=== PATIENT | male | born 1960 | race Caucasian/White ===

== ENCOUNTER 2018-08-08 10:04 | Emergency (ER) | payer OTHER ==
[~2018-08-08] VITALS: Ht 195.6 cm; Wt 56.8 kg
[~2018-08-08 10:04] MED LIST: ASPI81TA52 PO; CIPR500T4 PO; HYDR-3498 PO; METR500T PO; ONDA4TAB35 PO
[2018-08-08 10:07] VITALS: Ht 195.6 cm; Wt 56.8 kg
[2018-08-08] MEDS ORDERED: SOD CHLORIDE 0.9% 1,000 ML IV STA (10:45)
--- NOTE | 2018-08-08 11:55 | ERD ---
ER Documentation Chief Complaint Chief Complaint AP/NO APPETITE; WEIGHT LOSS - HX OF DIVERCULITIS HPI 58-year-old male presents the emergency department with his sister for a history of weight loss and decreased appetite. Patient states that he is been in his normal state of health until the last few weeks at which time he has had decreased appetite and decreased p.o. intake. Patient states he had a weight loss during that time. Patient's been taking his normal medications. Patient reports no fevers, chills, diarrhea or any other acute symptoms. ROS All systems reviewed and are negative except as per history of present illness. Medications Home Meds Active Scripts Hydrocodone Bit-Acetaminophen* ([place]*) 5-325 Mg Tab, 1 TAB PO Q6 PRN for SEVERE PAIN LEVEL 7-10, #7 TAB Prov:ROWAN PARADA MD 12/20/15 Ondansetron Hcl* (Zofran* ODT) 4 mg -ODT Tab.disper, 4 MG PO Q6 PRN for NAUSEA AND/OR VOMITING, #10 TAB Prov:ROWAN PARADA MD 12/20/15 Ciprofloxacin Hcl* (Ciprofloxacin Hcl*) 500 Mg Tablet, 500 MG PO BID for 7 Days, TAB Prov:ROWAN PARADA MD 12/20/15 Metronidazole* (Flagyl*) 500 Mg Tablet, 500 MG PO TID for 7 Days, TAB Prov:ROWAN PARADA MD 12/20/15 Reported Medications Aspirin (Low Dose Aspirin) 81 Mg Tablet.dr, 162 MG PO BID, #30 TAB STOPPED TAKING 12/10/15 12/20/15 Allergies Allergies: Coded Allergies: No Known Drug Allergies (Verified Allergy, Unknown, 12/20/15) PMhx/Soc History of Surgery: Yes (MULTIPLE ARM SURGERIES) Anesthesia Reaction: No Hx Neurological Disorder: No Hx Respiratory Disorders: No Hx Cardiac Disorders: No Hx Psychiatric Problems: No Hx Miscellaneous Medical Probl: No Hx Alcohol Use: No Hx Substance Use: No Hx Tobacco Use: Yes Smoking Status: Never smoker Physical Exam Vitals Vital Signs Date Temp Pulse Resp B/P (MAP) Pulse Ox O2 O2 Flow FiO2 Time Delivery Rate 08/08/18 98.5 90 19 146/77 98 10:07 (100) Physical Exam GENERAL: Thin, cachectic male in no acute distress HEENT: Pupils equal, round, and reactive to light. EOMI. There is no scleral icterus. NECK: C-spine is soft and supple, there is no meningismus. There is no cervical lymphadenopathy. LUNGS: Clear to auscultation bilaterally. There are no rales, wheezes or rhonchi. HEART: Regular rate and rhythm, no murmurs, clicks, rubs or gallops. ABDOMEN: Soft, non-tender, non-distended. There are bowel sounds in all four quadrants. No rebound or guarding. EXTREMITIES: There is no peripheral cyanosis or edema. No focal swelling or erythema. NEURO: The patient moves all four extremities with 5/5 strength. Cranial nerves II - XII are intact. Normal gait. Alert and oriented SKIN: There is no apparent rash or petechiae. HEME/LYMPHATIC: There is no evidence of excessive bruising or lymphedema. PSYCHIATRIC: The patient does not appear anxious or depressed. Result Diagram: 08/08/18 1102 08/08/18 1102 Results 24 hrs Laboratory Tests Test 08/08/18 11:02 White Blood Count 9.5 10^3/ul Red Blood Count 5.33 10^6/ul Hemoglobin 16.3 g/dl Hematocrit 47.8 % Mean Corpuscular Volume 89.7 fl Mean Corpuscular Hemoglobin 30.6 pg Mean Corpuscular Hemoglobin Concent 34.1 g/dl Red Cell Distribution Width 13.1 % Platelet Count 244 10^3/UL Mean Platelet Volume 9.3 fl Immature Granulocytes % 0.300 % Neutrophils % 69.5 % Lymphocytes % 21.0 % Monocytes % 7.9 % Eosinophils % 1.2 % Basophils % 0.1 % Nucleated Red Blood Cells % 0.0 /100WBC Immature Granulocytes # 0.030 10^3/ul Neutrophils # 6.6 10^3/ul Lymphocytes # 2.0 10^3/ul Monocytes # 0.8 10^3/ul Eosinophils # 0.1 10^3/ul Basophils # 0.0 10^3/ul Nucleated Red Blood Cells # 0.0 10^3/ul Sodium Level 139 mmol/L Potassium Level 4.0 mmol/L Chloride Level 98 mmol/L Carbon Dioxide Level 31 mmol/L Anion Gap 10 Blood Urea Nitrogen 16 mg/dl Creatinine 0.73 mg/dl Est Glomerular Filtrat Rate mL/min > 60 mL/min Glucose Level 179 mg/dl Calcium Level 9.5 mg/dl Total Bilirubin 0.9 mg/dl Direct Bilirubin 0.00 mg/dl Indirect Bilirubin 0.9 mg/dl Aspartate Amino Transf (AST/SGOT) 20 IU/L Alanine Aminotransferase (ALT/SGPT) 21 IU/L Alkaline Phosphatase 72 IU/L Total Protein 7.0 g/dl Albumin 4.2 g/dl Globulin 2.80 g/dl Albumin/Globulin Ratio 1.50 Lipase 87 U/L Current Medications Medications Dose Sig/Brian Start Time Status Last (Trade) Ordered Route PRN Stop Time Admin Dose Reason Admin Sodium 1,000 ml @ Q1H STAT 08/08/18 DC 08/08/18 Chloride 1,000 mls/hr IV 10:45 08/08/18 11:44 11:44 Procedures/MDM Patient was taken to a room, seen and evaluated. Comfort measures were initiated. Diagnostic tests were ordered and reviewed. 3 LEAD RHYTHM STRIP: Normal sinus rhythm without ectopy RADIOLOGY: reviewed with the radiologist REEVALUATION: 1150: Diagnostic tests were appreciated. Patient was reevaluated. He remained nontoxic appearing. [employer]IN-year-old male presents to the emergency department with weight loss and decreased appetite. He has a history of diverticulosis and diverticulitis, but no evidence of acute diverticulitis at this time. Patient has no evidence of obstruction. His elect lites show no evidence of significant abnormalities and he does not appear to be clinically dehydrated. I suspect a lot of his issues are secondary to his medications. Overall, though he is clinically nontoxic and seems appropriate for outpatient supportive care. Departure Diagnosis: Primary Impression: Abdominal pain Condition: Stable Patient Instructions: Abdominal Pain Additional Instructions: See your doctor for follow-up as discussed. Take a copy of your test results, if appropriate, to this follow-up visit. You should discuss her medications with your doctor See your doctor or return here if your symptoms do not improve as expected. At any time, please return to the emergency department for any change or worsening in her symptoms. JACINTO TOVAR Aug 08, 2018 11:55
[2018-08-08] MEDS ORDERED: HYDR4TAB51 PO (12:02)
[2018-08-08] MEDS ORDERED: ERGO500013 PO (12:02)
[2018-08-08] MEDS ORDERED: TAMS0.4C2 PO (12:03)
[2018-08-08] MEDS ORDERED: ESCI10TA48 PO (12:04)
[2018-08-08] MEDS ORDERED: TRAM50TA PO (12:05)
[2018-08-08 13:44] VITALS: BP 132/79; PULSE 77; RESP 18
== END 2018-08-08 15:18 | disposition home or self-care (01) ==
LOC: E/R 10:04
DX: R10.9 Unspecified abdominal pain (principal)
CPT/HCPCS: 36415; 74176; 80053; 81001; 82962; 83690; 85025; J7030; Z7502; 81003